=== PATIENT | male | born 1935 | race Caucasian/White ===

== ENCOUNTER 2017-01-27 07:16 | Emergency (ER) | payer MEDICARE, BC | END 2017-01-27 08:07 | disposition home or self-care (01) | LOC: ER 07:16 → EDBD 07:16 → ER 08:07 | DX: I44.2 Atrioventricular block, complete (principal); R00.1 Bradycardia, unspecified; I25.10 Atherosclerotic heart disease of native coronary artery without angina pectoris; I48.91 Unspecified atrial fibrillation; I10 Essential (primary) hypertension; Z95.1 Presence of aortocoronary bypass graft; Z79.82 Long term (current) use of aspirin; Z79.899 Other long term (current) drug therapy | CPT/HCPCS: 36415 ==

== ENCOUNTER 2017-02-02 07:46 | Inpatient (IN) | payer MEDICARE, BC ==
[~2017-02-02] VITALS: Ht 172.7 cm; Wt 72.3 kg
--- NOTE | 2017-02-06 18:33 | NUR ---
1600-PT NAVARRO AMBULATED IN HALLS WITH . TOLERATED WELL
== END 2017-02-12 12:30 | disposition home or self-care (01) | DRG 193 ==
LOC: ER 07:46 → MED 13:38 → EDBD 02-12 12:30
PROVIDERS: ADMIT Internal Medicine
DX: J18.9 Pneumonia, unspecified organism (principal); I50.23 Acute on chronic systolic (congestive) heart failure; I13.0 Hypertensive heart and chronic kidney disease with heart failure and stage 1 through stage 4 chronic kidney disease, or unspecified chronic kidney disease; N17.9 Acute kidney failure, unspecified; E87.1 Hypo-osmolality and hyponatremia; Y95 Nosocomial condition; N18.3 Chronic kidney disease, stage 3 (moderate); E78.5 Hyperlipidemia, unspecified; I25.10 Atherosclerotic heart disease of native coronary artery without angina pectoris; Z95.1 Presence of aortocoronary bypass graft; I25.5 Ischemic cardiomyopathy; I48.0 Paroxysmal atrial fibrillation; E55.9 Vitamin D deficiency, unspecified; K21.9 Gastro-esophageal reflux disease without esophagitis; N40.0 Benign prostatic hyperplasia without lower urinary tract symptoms; Z95.810 Presence of automatic (implantable) cardiac defibrillator; Z79.01 Long term (current) use of anticoagulants; Z79.899 Other long term (current) drug therapy; Z82.3 Family history of stroke; D64.9 Anemia, unspecified; D69.6 Thrombocytopenia, unspecified; E87.6 Hypokalemia
CPT/HCPCS: 36415; 92610; 94664; 97161-GP; 97166; J1940; J3370; J7050

== ENCOUNTER 2017-02-02 07:46 | Emergency (ER) | payer MEDICARE, BC | END 2017-02-02 13:37 | disposition critical access hospital (66) | LOC: ER 07:46 → EDBD 07:46 → ER 13:37 | DX: J18.1 Lobar pneumonia, unspecified organism (principal); I11.0 Hypertensive heart disease with heart failure; I50.9 Heart failure, unspecified; I48.91 Unspecified atrial fibrillation; Z79.82 Long term (current) use of aspirin; Z79.01 Long term (current) use of anticoagulants; Z79.899 Other long term (current) drug therapy; Z95.0 Presence of cardiac pacemaker | CPT/HCPCS: 36415; 96365; 96375; J1940 ==